=== PATIENT | female | born 1955 | race Caucasian/White ===

== ENCOUNTER → 2020-07-05 | Outpatient (CLI) | payer BC, OTHER ==
[~2020-07-05] MED LIST: ALEVE220 M1 PO; ALEVE220 MG PO; ASPIRIN CHEWABL81 MG PO; ASPIRIN EC81 MG PO; ASPIRIN325 MG PO; CLEOCIN HCL300 MG PO; ELIQUIS 2.5 MG2.5 MG PO; ELIQUIS2.5 MG PO; IBUPROFEN800 MG PO; LOPRESSOR 25 MG25 MG PO; NEXIUM40 MG PO; NORCO 5-325 TA1 EACH PO; NORCO 7.5-3251 EACH PO; PERCOCET 5-3251 EACH PO; SEIZURE MED PO; VITAMIN C500 M4 PO; VITAMIN D350000 UNIT PO; XYZAL5 MG PO
[2020-07-05 08:54] LABS: HEMOGLOBIN 13.2 gm/dl (12.3-15.3); RED BLOOD COUNT 4.23 M/UL (4.00-5.10); WHITE BLOOD COUNT 4.2 K/UL (4.5-11.0)
[2020-07-05 09:17] LABS: BUN/CREATININE RATIO 25 (0-10)
== END ==
LOC: CT 08:15
PROVIDERS: Internal Medicine Hematology & Oncology
DX: R59.9 Enlarged lymph nodes, unspecified (principal); R59.0 Localized enlarged lymph nodes
CPT/HCPCS: 36415; 71260; 80053; 85027; Q9967

== ENCOUNTER → 2021-07-29 | Outpatient (CLI) | payer BC | LOC: CT 07-11 09:00 | DX: R59.9 Enlarged lymph nodes, unspecified (principal); R59.0 Localized enlarged lymph nodes | CPT/HCPCS: 71260; Q9967 ==